=== PATIENT | male | born 1955 | race Caucasian/White ===

== ENCOUNTER 2016-12-11 15:00 | Inpatient (IN) | payer BC ==
[2016-12-11 15:23] VITALS: BMI 37.3
[2016-12-11] MEDS ORDERED: LIDOCAINE HCL 2% JELLY (5 ML/TUBE) ONE ×2 (15:33→17:46)
[2016-12-11] MEDS ORDERED: HYDROmorphone HCL CARPU-JECT 1 MG/1 ML DISP.SYRIN IVPB ONE ×3 (15:49→19:31)
[2016-12-11] MEDS ORDERED: LIDOCAINE HCL 2% JELLY (5 ML/TUBE) TP ONE ×3 (15:51→19:59)
--- NOTE | 2016-12-11 15:58 | PDOC ---
History of Present Illness - History of Present Illness Initial Comments: 12/11/16 16:46 The patient is a 61-year-old male with a significant past medical history of spinal stenosis, disc herniations, prostate cancer s/p prostatectomy (in remission), presents with intermittent hematuria and abdominal pain for one week. The patient reports he has experienced these symptoms in the past. He reports having a routine cystoscopy performed 2 months ago that was negative. He noticed that he was having increasing hematuria and states he was prescribed cephalexin. He reports he has been taking this medication as prescribed, but noticed today that he was unable to urinate for last 4-5 hours. He reports increasing abdominal distention and lower abdominal pain. Allergies: morphine and penicillins <Gisella Wells - Last Filed: 12/11/16 19:07> - General History Source: Patient Exam Limitations: No Limitations <Colt Moreland - Last Filed: 12/11/16 19:43> - General Chief Complaint: Urinary Problem Stated Complaint: UNABLE TO URINATE/HEMATURIA Time Seen by Provider: 12/11/16 15:28 Past History <Gisella Wells - Last Filed: 12/11/16 19:07> - Past Medical History HTN: Yes - Surgical History Neurologic Surgery: Yes (BACK SURGERIESX5) - Psycho/Social/Smoking Cessation Hx Suicidal Ideation: No Smoking History: Never smoked <Colt Moreland - Last Filed: 12/11/16 19:43> - Past Medical History Allergies/Adverse Reactions: Allergies Allergy/AdvReac Type Severity Reaction Status Date / Time morphine Allergy Difficulty Verified 12/11/16 15:20 Breathing Penicillins Allergy Swelling Verified 12/11/16 15:20 Home Medications: Ambulatory Orders Diazepam [Valium] 5 mg PO DAILY 12/11/16 Hydromorphone [Dilaudid -] 2 mg PO Q8H 12/11/16 Levofloxacin [Levaquin -] 500 mg PO DAILY 12/11/16 Review of Systems - Review of Systems Able to Perform ROS?: Yes Comments:: 12/11/16 16:50 GENERAL/CONSTITUTIONAL: No fever or chills. No weakness. HEAD, EYES, EARS, NOSE AND THROAT: No change in vision. No ear pain or discharge. No sore throat. CARDIOVASCULAR: No chest pain or shortness of breath. RESPIRATORY: No cough, wheezing, or hemoptysis. GASTROINTESTINAL: (+) lower abdominal pain. abdominal distention. No nausea, vomiting, diarrhea or constipation. GENITOURINARY: (+) hematuria and hesitancy. No dysuria MUSCULOSKELETAL: No joint or muscle swelling or pain. No neck or back pain. SKIN: No rash NEUROLOGIC: No headache, vertigo, loss of consciousness, or change in strength/ sensation. ENDOCRINE: No increased thirst. No abnormal weight change. HEMATOLOGIC/LYMPHATIC: No anemia, easy bleeding, or history of blood clots. ALLERGIC/IMMUNOLOGIC: No hives or skin allergy. <Gisella Wells - Last Filed: 12/11/16 19:07> *Physical Exam - Vital Signs Last Vital Signs Temp Pulse Resp BP Pulse Ox 97.9 F 116 H 19 140/72 96 12/11/16 15:19 12/11/16 15:19 12/11/16 15:19 12/11/16 15:19 12/11/16 15:19 - Physical Exam Comments: 12/11/16 16:51 GENERAL: Awake, alert, and fully oriented, in no acute distress HEAD: No signs of trauma EYES: PERRLA, EOMI, sclera anicteric, conjunctiva clear ENT: Auricles normal inspection, hearing grossly normal, nares patent, oropharynx clear without exudates. Moist mucosa NECK: Normal ROM, supple, no lymphadenopathy, JVD, or masses LUNGS: Breath sounds equal, clear to auscultation bilaterally. No wheezes, and no crackles HEART: Regular rate and rhythm, normal S1 and S2, no murmurs, rubs or gallops ABDOMEN: (+) Abdominal distension, lower abdominal discomfort on palpatio Soft, normoactive bowel sounds. No guarding, no rebound. No masses EXTREMITIES: Normal range of motion, no edema. No clubbing or cyanosis. No cords, erythema, or tenderness NEUROLOGICAL: Cranial nerves II-XII intact. Normal speech, normal gait. Sensation intact in upper and lower extremities. 5/5 motor strength in upper and lower extremities. No pronator drift. Finger to nose intact. Rapid alternations intact. SKIN: Warm, Dry, normal turgor, no rashes or lesions noted. <Gisella Wells - Last Filed: 12/11/16 19:07> - Vital Signs Last Vital Signs Temp Pulse Resp BP Pulse Ox 97.9 F 116 H 19 140/72 96 12/11/16 15:19 12/11/16 15:19 12/11/16 15:19 12/11/16 15:19 12/11/16 15:19 <Colt Moreland - Last Filed: 12/11/16 19:43> ED Treatment Course - LABORATORY CBC & Chemistry Diagram: 12/11/16 15:56 12/11/16 15:56 - ADDITIONAL ORDERS Additional order review: Laboratory Results 12/11/16 12/11/16 15:56 15:56 INR 1.05 PTT (Actin FS) 27.9 Urine Color Dk. red Urine Appearance Cloudy Urine pH 6.5 Urine Protein 3+ H Urine Glucose (UA) Trace H Urine Ketones 1+ H Urine Blood 3+ H Urine Nitrite Positive Urine Bilirubin Negative Urine Urobilinogen 2.0 e.u/dl Ur Leukocyte Esterase 2+ H 12/11/16 15:56 RBC 4.24 MCV 89.1 MCHC 32.2 RDW 16.2 H MPV 7.6 Neutrophils % 83.6 H Lymphocytes % 6.3 L Monocytes % 6.6 Eosinophils % 2.4 Basophils % 1.1 - RADIOLOGY Radiograph Interpretation: 12/11/16 19:08 EXAM: CT abdomen and pelvis noncontrast was read by Joni Graves MD at 19:04 EST FINDINGS: The kidneys are normal in size without hydronephrosis. There are no stones seen along the course of the ureters or within the bladder. Multiple nonobstructing stones in the left kidney measuring up to 8 mm and small 2 mm nonobstructing stone in the lower pole of the left kidney. There is mild bilateral perinephric stranding, possibly chronic changes. Fatty liver. Hypodense lesion at the posterior dome of the liver measuring 1.1 cm, likely a cyst The unenhanced upper abdominal visceral organs are otherwise unremarkable Normal appearance of the gallbladder There is no bowel distention The appendix is not visualized Few diverticula predominantly in the left colon without evidence of acute diverticulitis The urinary bladder is decompressed and contains a Fernandes catheter The prostate is absent L4 and L5 laminectomy defects <Gisella Wells - Last Filed: 12/11/16 19:07> - LABORATORY CBC & Chemistry Diagram: 12/11/16 15:56 12/11/16 15:56 - RADIOLOGY Radiology Studies Ordered: Category Date Time Status SPIRAL- RENAL-STONE CT [CT] Stat CT Scan 12/11/16 15:49 Ordered <Colt Moreland - Last Filed: 12/11/16 19:43> Medical Decision Making - Medical Decision Making 12/11/16 15:52 A portion of this note was documented by scribe services under my direction. I have reviewed the details of the note, within reason, and agree with the documentation with the following case summary and management plan written by me. Patient treated in the ED. Nursing notes are reviewed and incorporated into the medical decision-making. Vital signs reviewed. Peripheral IV access obtained by the nurse, laboratory studies are drawn and sent, reviewed and interpreted by myself. Vital Signs Temp Pulse Resp BP Pulse Ox 97.9 F 116 H 19 140/72 96 12/11/16 15:19 12/11/16 15:19 12/11/16 15:19 12/11/16 15:19 12/11/16 15:19 61-year-old male with past medical history of spinal stenosis, disc herniations , prostate cancer status post prostatectomy, in remission presents with intermittent hematuria for one week. Patient has had these problems before and is unclear what the etiology is. He reports having a routine cystoscopy performed 2 months ago that was negative. He noticed that he was having increasing hematuria which was prescribed cephalexin. He reports he has been taking this medication. Noted today that he was unable to urinate for last 4-5 hours and noted increasing abdominal distention and pain. Came into the ED for further evaluation. He reports that this has been a problem before. 40 catheter was inserted immediately and a partially thousand cc of bloody urine obtained. We'll obtain a spiral CT to rule out kidney stones or to rule out other abdominal or back pathology. Labs to rule out a postoperative renal failure. Pain control. Reassess. 12/11/16 19:09 CBC, BMP 12/11/16 15:56 12/11/16 15:56 CMP Sodium 138 mmol/L (136-145) 12/11/16 15:56 Potassium 4.3 mmol/L (3.5-5.1) 12/11/16 15:56 Chloride 100 mmol/L (98-107) 12/11/16 15:56 Carbon Dioxide 30 mmol/L (21-32) 12/11/16 15:56 Anion Gap 8 (8-16) 12/11/16 15:56 BUN 14 mg/dL (7-18) 12/11/16 15:56 Creatinine 1.0 mg/dL (0.7-1.3) 12/11/16 15:56 Creat Clearance w eGFR > 60 (>60) 12/11/16 15:56 Random Glucose 101 mg/dL (74-106) 12/11/16 15:56 Calcium 9.3 mg/dL (8.5-10.1) 12/11/16 15:56 Total Bilirubin 0.5 mg/dL (0.2-1.0) 12/11/16 15:56 AST 25 U/L (15-37) 12/11/16 15:56 ALT 35 U/L (12-78) 12/11/16 15:56 Alkaline Phosphatase 106 U/L (45-117) 12/11/16 15:56 Total Protein 6.7 g/dl (6.4-8.2) 12/11/16 15:56 Albumin 3.8 g/dl (3.4-5.0) 12/11/16 15:56 Urine Test Results Urine Color Dk. red 12/11/16 15:56 Urine Appearance Cloudy 12/11/16 15:56 Urine pH 6.5 (5.0-8.0) 12/11/16 15:56 Urine Protein 3+ (NEGATIVE) H 12/11/16 15:56 Urine Glucose (UA) Trace (NEGATIVE) H 12/11/16 15:56 Urine Ketones 1+ (NEGATIVE) H 12/11/16 15:56 Urine Blood 3+ (NEGATIVE) H 12/11/16 15:56 Urine Nitrite Positive (NEGATIVE) 12/11/16 15:56 Urine Bilirubin Negative (NEGATIVE) 12/11/16 15:56 Ur Leukocyte Esterase 2+ (NEGATIVE) H 12/11/16 15:56 Urine RBC >500 /hpf (0-3) 12/11/16 15:56 Urine WBC 20 /hpf (3-5) 12/11/16 15:56 Urine Bacteria Few /hpf (NONE SEEN) 12/11/16 15:56 CT scan shows: multiple nonobstructing stones. 12/11/16 19:09 The patient's is here in the ED now. States that the patient has been on cipro and then levaquin and the patient continues to have UTIs. Patient fails outpatient management. CBI ordered. Pt continues to have blood clots and hematuria from fernandes catheter. Given persistent pain, persistence hematuria, and failure for outpatient management on abx, Will need to admit the patient to the hospital. Pt follows up with DR. Addison and DR. Beth. 12/11/16 19:[address] Gutierrez who accepts the patient to med/surg admission. Case discussed in detail with admitting physician including history, physical exam and ancillary studies. Admitting physician has assumed care for the patient, will follow all pending diagnostics and will complete the evaluation and treatment. <Colt Moreland - Last Filed: 12/11/16 19:43> *DC/Admit/Observation/Transfer - Attestations Scribe Attestion: 12/11/16 16:51 Documentation prepared by Gisella Wells, acting as medical logistics specialist for Colt Moreland MD, <Gisella Wells - Last Filed: 12/11/16 19:07> - Discharge Dispostion Admit: Yes <Colt Moreland - Last Filed: 12/11/16 19:43> Diagnosis at time of Disposition: Hematuria Urinary tract infection Qualifiers: Urinary tract infection type: site unspecified Hematuria presence: with hematuria Qualified Code(s): N39.0 - Urinary tract infection, site not specified ; R31.9 - Hematuria, unspecified - Discharge Dispostion Condition at time of disposition: Stable
[2016-12-11 16:02] LABS: MEAN PLT VOLUME 7.6 fl (7.5-11.1); PLATELET COUNT 195 K/MM3 (134-434); URINE COLOR DK. RED; URINE GLUCOSE (UA) TRACE (NEGATIVE)
[2016-12-11 16:03] LABS: PH,URINE 6.5 (5.0-8.0); URINE BILIRUBIN NEGATIVE (NEGATIVE); URINE KETONE 1+ (NEGATIVE); URINE UROBILINOGEN 2.0 E.U/dl E.U./dl (0.2-1.0)
[2016-12-11 16:09] LABS: BASOPHIL 1.1 % (0-2.0); EOSINOPHIL 2.4 % (0-4.5); MCH 28.7 pg (25.7-33.7); MCHC 32.2 g/dl (32.0-35.9); MEAN CELL VOLUME 89.1 fl (80-96); NEUTROPHILS 83.6 % (42.8-82.8); RDW 16.2 % (11.9-15.9); URINE BLOOD 3+ (NEGATIVE); URINE LEUK ESTERASE 2+ (NEGATIVE); URINE NITRITE POSITIVE (NEGATIVE); URINE PROTEIN 3+ (NEGATIVE); WHITE BLOOD COUNT 7.9 K/mm3 (4.0-10.0)
[2016-12-11] MEDS ORDERED: HYDROmorphone HCL CARPU-JECT 1 MG/1 ML DISP.SYRIN ONE ×4 (16:09→21:28)
[2016-12-11 16:10] LABS: URINE APPEARANCE CLOUDY
[2016-12-11 16:20] LABS: INR 1.05 (0.82-1.09); PROTHROMBIN TIME (PATIENT) 11.6 SEC (9.98-11.88)
[2016-12-11 16:23] LABS: ACTIVATED PTT 27.9 SECONDS (26.9-34.4)
[2016-12-11 16:33] LABS: ALBUMIN 3.8 g/dl (3.4-5.0); ANION GAP 8 (8-16); BILIRUBIN,TOTAL 0.5 mg/dL (0.2-1.0); CALCIUM 9.3 mg/dL (8.5-10.1); CO2 30 mmol/L (21-32); COCKROFT - GAULT 126.12; GLUCOSE,RANDOM 101 mg/dL (74-106); SGOT/AST 25 U/L (15-37); SGPT/ALT 35 U/L (12-78); TOT PROT 6.7 g/dl (6.4-8.2)
[2016-12-11 16:34] LABS: ALK PHOS 106 U/L (45-117)
[2016-12-11] MEDS ORDERED: LEVOFLOXACIN 500 MG IVPB 100 ML IVPB ONE ×2 (16:34→17:46)
[2016-12-11 16:59] LABS: URINE RBC >500 /hpf (0-3)
[2016-12-11 17:01] LABS: URINE BACTERIA FEW /hpf (NONE SEEN); URINE WBC 20 /hpf (3-5)
[2016-12-11] MEDS ORDERED: HYDROmorphone HCL CARPU-JECT 1 MG/1 ML DISP.SYRIN IVPUSH ONE (21:09)
[2016-12-11] MEDS ORDERED: ONDANSETRON 4 MG/2 ML VIAL IVPB PRN (21:54)
[2016-12-11] MEDS: SODIUM CHLORIDE 1,000 ML IV SCH (23:38)
[2016-12-11] MEDS: ACETAMINOPHEN 325 MG TABLET (FP) PO PRN (23:44)
[2016-12-12] MEDS: HYDROmorphone HCL CARPU-JECT 2 MG/1 ML DISP.SYRIN IVPB PRN ×7 (03:16→23:57)
[2016-12-12 08:05] LABS: BASOPHIL 1.2 % (0-2.0); EOSINOPHIL 3.1 % (0-4.5); MCH 29.3 pg (25.7-33.7); MCHC 32.4 g/dl (32.0-35.9); MEAN CELL VOLUME 90.4 fl (80-96); NEUTROPHILS 76.4 % (42.8-82.8); PLATELET COUNT 173 K/MM3 (134-434); RDW 16.6 % (11.9-15.9); WHITE BLOOD COUNT 5.2 K/mm3 (4.0-10.0)
[2016-12-12 08:52] LABS: ALBUMIN 3.4 g/dl (3.4-5.0); ALK PHOS 102 U/L (45-117); ANION GAP 11 (8-16); BILIRUBIN,TOTAL 0.8 mg/dL (0.2-1.0); CALCIUM 8.7 mg/dL (8.5-10.1); CO2 29 mmol/L (21-32); COCKROFT - GAULT 126.12; GLUCOSE,RANDOM 115 mg/dL (74-106); SGOT/AST 19 U/L (15-37); SGPT/ALT 32 U/L (12-78); TOT PROT 6.1 g/dl (6.4-8.2)
[2016-12-12] MEDS: cefTRIAXone 1 GM/50 ML BAG (PRE-DOCKED) IVPB SCH (09:34)
[2016-12-12] MEDS: diazePAM 5 MG TABLET PO SCH (09:34)
[2016-12-12] MEDS: PANTOPRAZOLE 40 MG TABLET (FP) PO SCH (09:38)
[2016-12-12] MEDS ORDERED: CEFTRIAXONE 1 GM in DEXTROSE 5%-WATER - 50 ML IVPB SCH (10:00)
--- NOTE | 2016-12-12 12:21 | HP ---
Admitting History and Physical - Primary Care Physician PCP: Joni Ordoñez - Admission Chief Complaint: I was bleeding History of Present Illness: Mr Erwin is a very pleasant 61 year old male who comes in with blood in his urine and abdominal pain. He says he recently had a cystoscopy a few months ago and was told his bladder did not show any signs of cancer. However he was having hematuria off and on but it recently became more significant. It was bright red blood with clots. He has visited an outside ER multiple times and was placed on antibiotics. Yesterday he noted that he was having blood and then became unable to urinate at all. He also had pain in his abdomen secondary to this. Because of this he came in for further evaluation. He also has chronic back pain that he is scheduled for surgery. He denies fevers, chills, lightheadedness, dizziness, passing out, chest pain, shortness of breath, nausea , vomiting, diarrhea, or leg swelling. He says he is feeling better today. He is urinating freely and does not note any further blood. His back pain is severe and unchanged from baseline. History Source: Patient Limitations to Obtaining History: No Limitations - Past Medical History Cardiovascular: Yes: HTN - Past Surgical History Past Surgical History: Yes: Appendectomy Additional Past Surgical History: multiple back surgeries - Smoking History Smoking history: Never smoked Have you smoked in the past 12 months: No Aproximately how many cigarettes per day: 0 - Alcohol/Substance Use Hx Alcohol Use: No History of Substance Use: reports: None - Social History Usual Living Arrangement: Yes: With Spouse ADL: Independent History of Recent Travel: Yes (lives in [place], no international) Home Medications - Allergies Allergies/Adverse Reactions: Allergies Allergy/AdvReac Type Severity Reaction Status Date / Time morphine Allergy Mild Hives Verified 11/10/13 11:37 Penicillins Allergy Mild Swelling Verified 11/10/13 11:37 - Home Medications Home Medications: Ambulatory Orders Hydrocodone/Ibuprofen [Hydrocodone Bt-Ibuprofen Tab] 1 each PO Q4H PRN 11/10/13 Lisinopril [Prinivil] 20 mg PO DAILY 11/10/13 Oxycodone HCl/Acetaminophen [Percocet 5-325 mg Tablet -] 1 tab PO Q6H #14 tablet 11/10/13 Diazepam [Valium] 5 mg PO DAILY 12/11/16 Hydromorphone [Dilaudid -] 2 mg PO Q8H 12/11/16 Levofloxacin [Levaquin -] 500 mg PO DAILY 12/11/16 Family Disease History - Family Disease History Family History: Unremarkable Review of Systems Findings/Remarks: Full review of systems obtained, as per HPI and otherwise negative Physical Examination Vital Signs: Vital Signs Temperature 98.4 F 12/12/16 06:00 Pulse Rate 95 H 12/12/16 06:00 Respiratory Rate 20 12/12/16 06:00 Blood Pressure 117/43 12/12/16 06:00 O2 Sat by Pulse Oximetry (%) 98 12/11/16 23:10 Constitutional: Yes: No Distress, Calm, Obese Eyes: Yes: Conjunctiva Clear, EOM Intact, PERRL HENT: Yes: Atraumatic, Normocephalic Cardiovascular: Yes: Regular Rate and Rhythm. No: Gallop, Murmur, Rub Respiratory: Yes: Regular, CTA Bilaterally. No: Rales, Rhonchi, Wheezes Gastrointestinal: Yes: Normal Bowel Sounds, Soft. No: Distention, Tenderness Extremities: Yes: WNL Edema: No Labs: CBC, BMP 12/12/16 06:30 12/12/16 06:30 Imaging - Results Cat Scan: Other (unable to open in computer, awaiting official read) Problem List - Problems (1) UTI (urinary tract infection) Assessment/Plan: -urinalysis positive for UTI -started on rocephin -on oral antibiotics as an outpatient -continue IV rocephin today, await sensitivities as may have resistance since on antibiotics previously -will need a full course, complicated UTI -day 2 of antibiotics Qualifiers: Urinary tract infection type: acute cystitis Hematuria presence: with hematuria Qualified Code(s): N30.01 - Acute cystitis with hematuria (2) Hematuria Assessment/Plan: -resolved -secondary to UTI -urology consulted -await read on CT scan (3) Back pain Assessment/Plan: -continue dilaudid Code(s): M54.9 - DORSALGIA, UNSPECIFIED (4) HTN (hypertension) Assessment/Plan: -continue lisinopril Code(s): I10 - ESSENTIAL (PRIMARY) HYPERTENSION
[2016-12-12] MEDS: CITALOPRAM HYDROBROMIDE 20 MG TABLET (FP) PO SCH (17:47)
[2016-12-13] MEDS: HYDROmorphone HCL CARPU-JECT 2 MG/1 ML DISP.SYRIN IVPB PRN ×5 (04:23→21:02)
[2016-12-13] MEDS: SODIUM CHLORIDE 1,000 ML IV SCH ×2 (04:33→21:03)
[2016-12-13 07:54] LABS: BASOPHIL 1.3 % (0-2.0); EOSINOPHIL 1.3 % (0-4.5); MCH 29.4 pg (25.7-33.7); MCHC 32.4 g/dl (32.0-35.9); MEAN CELL VOLUME 90.5 fl (80-96); MEAN PLT VOLUME 7.9 fl (7.5-11.1); NEUTROPHILS 82.2 % (42.8-82.8); PLATELET COUNT 171 K/MM3 (134-434); RDW 16.8 % (11.9-15.9); WHITE BLOOD COUNT 6.1 K/mm3 (4.0-10.0)
[2016-12-13 08:19] LABS: CALCIUM 8.6 mg/dL (8.5-10.1); MAGNESIUM 2.2 mg/dL (1.8-2.4)
[2016-12-13 08:21] LABS: COCKROFT - GAULT 157.65; CREATININE 0.8 mg/dL (0.7-1.3); PHOSPHOROUS 2.4 mg/dL (2.5-4.9)
[2016-12-13] MEDS: cefTRIAXone 1 GM/50 ML BAG (PRE-DOCKED) IVPB SCH (09:39)
[2016-12-13] MEDS: CITALOPRAM HYDROBROMIDE 20 MG TABLET (FP) PO SCH (09:39)
[2016-12-13] MEDS: LISINOPRIL 20 MG TABLET (FP) PO SCH (09:39)
[2016-12-13] MEDS: PANTOPRAZOLE 40 MG TABLET (FP) PO SCH (09:39)
[2016-12-13] MEDS: diazePAM 5 MG TABLET PO SCH (09:39)
--- NOTE | 2016-12-13 15:05 | PN ---
Progress Note (short form) - Note Progress Note: [place] consult dictated imp/reccd 61 patrick old man with pmh of prostate cancer s/p prostatectomy and RT, eligard for 3 years, history of spinal stenosis and DJD s/p 5 back surgeries (last 13 months ago in [place]) (no hardware), developed gross hematuria 3 months ago- was evaluated by a urologist in [place]- had cystoscopy- spontaneously resolved. Now with recurrent hematuria which started several days ago while he was in [place]- he went to ED 6 times there for back pain and hematuria and was prescribed Ciprofloxacin. He was then called at the end of the week and told he had a ECOLI uti and was switched to cephelexin which he was started on he was then called and told to take levaquin whcih he took for the weekend. He came to ED b/c he had difficulty urinating and had severe lower abdominal and back pain. As well he didnot tolerate the levaquin which gave him stomach pain. In the ED they placed a fernandes and did bladder irrigation and then removed the fernandes. Since then he urinates small amounts of clear urine. No further hematuria. He is still having severe back pain. No fevers or chills Gross hematuria- in patient with history of radiation for prostate cancer ecoli uti- partially treated severe back pain- chronic from DJD and spinal stenosis-he reports as unchanged would get records from ER in [place] - need urine culture results culture here is negative b/c he was previously treated rocephin is fine for now f[facility]
--- NOTE | 2016-12-13 15:30 | PN ---
Progress Note, Physician Chief Complaint: Today complains of pain but is also very somnolent. Pain is located mainly in the back. No cp, sob, n/v. - Current Medication List Current Medications: Active Medications Acetaminophen (Tylenol -) 650 mg PO Q6H PRN PRN Reason: FEVER OR PAIN Last Admin: 12/11/16 23:44 Dose: 650 mg Ceftriaxone Sodium (Rocephin 1gm Ivpb (Pre-Docked)) 1 gm IVPB DAILY [facility] Last Admin: 12/13/16 09:39 Dose: 1 gm Citalopram Hydrobromide (Celexa -) 20 mg PO DAILY [facility] Last Admin: 12/13/16 09:39 Dose: 20 mg Diazepam (Valium -) 5 mg PO DAILY [facility] Last Admin: 12/13/16 09:39 Dose: 5 mg Hydromorphone HCl (Dilaudid Injection -) 2 mg IVPB Q4H PRN Last Admin: 12/13/16 13:13 Dose: 2 mg Sodium Chloride (Normal Saline -) 1,000 mls @ 75 mls/hr IV ASDIR [facility] Last Admin: 12/13/16 04:33 Dose: 75 mls/hr Lisinopril (Prinivil) 20 mg PO DAILY [facility] Last Admin: 12/13/16 09:39 Dose: 20 mg Ondansetron HCl (Zofran Injection) 4 mg IVPB Q6H PRN PRN Reason: NAUSEA Pantoprazole Sodium (Protonix -) 40 mg PO DAILY [facility] Last Admin: 12/13/16 09:39 Dose: 40 mg - Objective Vital Signs: Vital Signs Temperature 98.6 F 12/13/16 10:00 Pulse Rate 84 12/13/16 10:00 Respiratory Rate 20 12/13/16 11:00 Blood Pressure 139/88 12/13/16 10:00 O2 Sat by Pulse Oximetry (%) 98 12/13/16 11:00 Constitutional: Yes: Well Nourished, No Distress, Calm Cardiovascular: Yes: Regular Rate and Rhythm. No: Gallop, Murmur, Rub Respiratory: Yes: Regular, CTA Bilaterally. No: Rales, Rhonchi, Wheezes Gastrointestinal: Yes: Normal Bowel Sounds, Soft. No: Distention, Tenderness Extremities: Yes: WNL Edema: No Labs: CBC, BMP 12/13/16 06:20 12/13/16 06:20 INR, PTT INR 1.05 (0.82-1.09) 12/11/16 15:56 Problem List - Problems (1) UTI (urinary tract infection) Qualifiers: Urinary tract infection type: acute cystitis Hematuria presence: with hematuria Qualified Code(s): N30.01 - Acute cystitis with hematuria (3) Back pain Code(s): M54.9 - DORSALGIA, UNSPECIFIED (4) HTN (hypertension) Code(s): I10 - ESSENTIAL (PRIMARY) HYPERTENSION Assessment/Plan (1) UTI (urinary tract infection) Assessment/Plan: -urinalysis positive but cultures negative -? if cultures are false negative since treated -consult ID -continue rocephin currently Qualifiers: Urinary tract infection type: acute cystitis Hematuria presence: with hematuria Qualified Code(s): N30.01 - Acute cystitis with hematuria (2) Hematuria Assessment/Plan: -resolved -secondary to UTI -urology consulted and awaiting recommendations (3) Back pain Assessment/Plan: -patient with pain but somnolent -WILL NOT INCREASE NARCOTIC REGIMEN AT THIS TIME SECONDARY TO SOMNOLENCE AND CONCERN FOR RESPIRATORY DEPRESSION Code(s): M54.9 - DORSALGIA, UNSPECIFIED (4) HTN (hypertension) Assessment/Plan: -continue lisinopril Code(s): I10 - ESSENTIAL (PRIMARY) HYPERTENSION
--- NOTE | 2016-12-13 17:09 | CONS ---
DATE OF CONSULTATION: DATE OF DICTATION: 12/13/2016 REQUESTED BY: Silvio Millan MD This is a 61-year-old man with a past medical history of prostate cancer in 2012. He was status post prostatectomy, radiation therapy, and Eligard which he took for 3 years. He reports he was told he was cured. He has a history of spinal stenosis and DJD, has had 5 back surgeries, the last 13 months ago. There is no hardware in his back. This was in [place]. He has continued to have severe back pain and is currently consulting with a surgeon in [place]. Three months ago, he had an episode of gross hematuria. He is currently living and working in [place]. He saw a urologist there, who did a cystoscopy and told him everything was fine. The hematuria resolved. Again about a week ago he had gross hematuria. He then, during that time, he was making multiple visits to the emergency room for continued back pain. When he developed this gross hematuria, the emergency room sent a urine culture and they started him on Cipro. They called him last and told him the culture grew E coli and to start taking cephalexin. He took 1 tablet on . he caught a flight and came to [place] to have his back evaluation. evening he received another call from the ER in [place] and was told to switch to Levaquin, which he did. He ays the Levaquin was very very difficult on his stomach but he took it for the weekend. He developed urinary retention, he was unable to urinate and he came to the emergency room. There were no fevers or chills or lightheadedness. He did not pass out. He had no chest pain. He had abdominal pain due to the urinary retention. He reports his back pain is constant and severe and unchanged. In the emergency room, he says they placed a Harris catheter. They then irrigated his bladder until the blood clots cleared, and then they pulled the Harris catheter. His past medical history is notable for hypertension as well as prostate cancer. He does have a prior history of nephrolithiasis. Surgical history is notable for rotator cuff surgery. He has had an appendectomy. He has had 5 surgeries on his back, the most recent 13 months ago, and he is status post prostatectomy. He actually lives in [place], his spouse lives here in [place], and he travels back and forth. 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 He is allergic to PENICILLIN but tolerates cephalosporins, and allergic to MORPHINE. Medications at home include the hydrocodone, lisinopril, Percocet, Valium, and the levofloxacin. Family history is unremarkable. SOCIAL HISTORY: As stated before, he lives part of the time in [place] and travels back, with plans to retire here in [place]. He is originally from [place]. There is no history of cigarette or substance use. REVIEW OF SYSTEMS: He has no cough; he has no fevers or chills. He has chronic severe back pain, which he reports he has had for months. He is now voiding small amount of clear urine. PHYSICAL EXAMINATION: General: He is awake and alert. Vital Signs: Temperature is 98.4. He is otherwise afebrile. Blood pressure is 135/87. Pulse 66. Respiratory rate 20. Saturating 98% on room air. HEENT: Normocephalic. His eyes are anicteric. Neck: Supple. Lungs: Clear to auscultation. Heart: Regular rate and rhythm. Abdomen: Soft, nontender. Extremities: Without edema. His back pain, lower back, is severe pain to the smallest touch. His white count is 6.1, hemoglobin 11.2, platelets 171, INR is 1. BUN 16, creatinine 0.8. LFTs are normal. Urinalysis is 2+ leukocytes, greater than 500 red cells, with 20 white cells, and urine culture which was sent is negative. He had a CAT scan of the abdomen and pelvis done in the emergency room that is notable for bilateral renal nonobstructing stones with stranding of the perinephric fat, likely chronic. There is no hydronephrosis. There is evidence of multilevel degenerative disk disease in the lumbar spine with bilateral laminectomy at L4-L5 and prominent right paracentral posterior spur impinging the L2 and S1 nerve root. In summary, this is a 61-year-old man with gross hematuria, in a patient with a history of radiation for prostate cancer, Escherichia coli urinary tract infection that is partially treated, severe back pain chronic from degenerative joint disease and spinal stenosis. I would get his records from the ER in [place]. We need the urine culture results to see if we can come up with another agent besides Levaquin, which he says he cannot tolerate. Culture here is negative because he was previously treated. I would continue his Rocephin, follow up with Urology and get his records. I have asked the staff to assist us in doing this. Further recommendations to follow. AGNES RODRIGUEZ M.D. LAZARO/[id number]
[2016-12-14] MEDS: HYDROmorphone HCL CARPU-JECT 2 MG/1 ML DISP.SYRIN IVPB PRN ×6 (00:43→23:26)
[2016-12-14] MEDS: SODIUM CHLORIDE 1,000 ML IV SCH ×3 (07:51→23:27)
--- NOTE | 2016-12-14 07:57 | CON.GU ---
Consult - History of Present Illness History of Present Illness: 61 yo male with h/o prostate cancer s/p radical prostatectomy in 2012, followed by XRT, adjuvant hormone therapy for 3 yrs (ended 06/2016), currently NIALL. Recent gross heme evaluated by urologist [place] with normal cysto and heme resolved. GH recurred again about a week ago and given several different antibiotics, now admitted for same. No dysuria, no flank pain. Initially fioley placed in ER and placed on CBI but now fernandes is out, urine is clear and voiding spontaneously. Urine culture on admission is negative but pt also had been on multiple antibiotics. CT scan shows bilateral nonobstructing stones. Complicating things is his chronic low back pain/spinal stenosis which has required 6 surgeries in the past, with a planned 7th sugery upcoming. Right now his only complaint is back pain - Past Medical History Cardio/Vascular: Yes: HTN - Past Surgical History Past Surgical History: Yes: Appendectomy - Alcohol/Substance Use Hx Alcohol Use: No History of Substance Use: reports: None - Smoking History Smoking history: Never smoked Have you smoked in the past 12 months: No Aproximately how many cigarettes per day: 0 - Social History ADL: Independent History of Recent Travel: Yes (lives in [place], no international) Home Medications - Allergies Allergies/Adverse Reactions: Allergies Allergy/AdvReac Type Severity Reaction Status Date / Time morphine Allergy Mild Hives Verified 11/10/13 11:37 Penicillins Allergy Mild Swelling Verified 11/10/13 11:37 - Home Medications Home Medications: Ambulatory Orders Hydrocodone/Ibuprofen [Hydrocodone Bt-Ibuprofen Tab] 1 each PO Q4H PRN 11/10/13 Lisinopril [Prinivil] 20 mg PO DAILY 11/10/13 Oxycodone HCl/Acetaminophen [Percocet 5-325 mg Tablet -] 1 tab PO Q6H #14 tablet 11/10/13 Diazepam [Valium] 5 mg PO DAILY 12/11/16 Hydromorphone [Dilaudid -] 2 mg PO Q8H 12/11/16 Levofloxacin [Levaquin -] 500 mg PO DAILY 12/11/16 Review of Systems - Review of Systems Constitutional: reports: No Symptoms Neck: reports: No Symptoms Cardiovascular: reports: No Symptoms Gastrointestinal: reports: No Symptoms Genitourinary: reports: No Symptoms Musculoskeletal: reports: Back Pain Physical Exam- Vital Signs: Vital Signs Temperature 97.8 F 12/14/16 06:00 Pulse Rate 67 12/14/16 06:00 Respiratory Rate 20 12/14/16 06:00 Blood Pressure 119/67 12/14/16 06:00 O2 Sat by Pulse Oximetry (%) 98 12/13/16 21:00 Cardiovascular: Yes: Regular Rate and Rhythm Respiratory: Yes: Regular Gastrointestinal: Yes: Normal Bowel Sounds, Soft Renal/: Yes: WNL, Menses Present, , Vaginal Bleeding, Vaginal Discharge, Other. No: Anuria, Bladder Distention, CVA Tenderness - Left, CVA Tenderness - Right, Fernandes Present, Hematuria, Incontinence, Oliguria, Polyuria, Scrotal Edema, Urethral Discharge Testicles: Yes: WNL Scrotum: Yes: WNL Penis: Yes: WNL Labs: CBC, BMP 12/13/16 06:20 12/13/16 06:20 Imaging - Results Cat Scan: Image Reviewed Problem List - Problems (1) Hematuria Assessment/Plan: Etiology of gross heme likely from uti although prior XRT may be playing a role. Since the stones are nonobstructing, they are not the cause. Stable from standpoint. Abx as per ID.
[2016-12-14 08:16] LABS: BASOPHIL 0.7 % (0-2.0); EOSINOPHIL 3.7 % (0-4.5); MCH 29.2 pg (25.7-33.7); MCHC 32.5 g/dl (32.0-35.9); MEAN CELL VOLUME 89.8 fl (80-96); MEAN PLT VOLUME 7.3 fl (7.5-11.1); NEUTROPHILS 73.5 % (42.8-82.8); PLATELET COUNT 155 K/MM3 (134-434); RDW 16.3 % (11.9-15.9); WHITE BLOOD COUNT 5.1 K/mm3 (4.0-10.0)
[2016-12-14 09:14] LABS: CALCIUM 7.9 mg/dL (8.5-10.1); COCKROFT - GAULT 180.17; CREATININE 0.7 mg/dL (0.7-1.3); PHOSPHOROUS 2.1 mg/dL (2.5-4.9)
[2016-12-14] MEDS: LISINOPRIL 20 MG TABLET (FP) PO SCH (09:57)
[2016-12-14] MEDS: cefTRIAXone 1 GM/50 ML BAG (PRE-DOCKED) IVPB SCH (09:57)
[2016-12-14] MEDS: diazePAM 5 MG TABLET PO SCH (09:57)
[2016-12-14] MEDS: PANTOPRAZOLE 40 MG TABLET (FP) PO SCH (09:57)
[2016-12-14] MEDS: CITALOPRAM HYDROBROMIDE 20 MG TABLET (FP) PO SCH (09:57)
[2016-12-14] MEDS: NAPH,MB-DB/K PH,MBDB POWDER PACKET PO SCH ×2 (11:35→21:54)
[2016-12-14] MEDS: ACETAMINOPHEN 325 MG TABLET (FP) PO PRN ×2 (12:51→21:52)
--- NOTE | 2016-12-14 13:12 | PN ---
[id number] I called his hospital in [place]- [facility]- and got the records faxed- he had a urine culture with ecoli resistant to cipro and sensitive to bactrim and ceftriaxone Vital Signs Period Temp Pulse Resp BP Sys/Pineda Pulse Ox Last 24 Hr 8.4 F-98.5 F 66-67 18-20 119-155/67-87 98 cor-rrr lungs clear abd soft,nt ext no edema CBC, BMP 12/14/16 06:50 12/14/16 06:50 Microbiology 12/11/16 15:56 Urine - Urine - Catheterized Urine Culture - Final NO GROWTH OBTAINED a/p hematuria resolved day #3 ceftriaxone can switch to po bactrim when ready for discharge would treat total 14 days continued back pain- ?imaging consider neurosurgery/pain management d/w Dr Millan please call back if needed
--- NOTE | 2016-12-14 13:50 | PN ---
Progress Note, Physician Chief Complaint: Patient complains of back pain. No cp, sob, n/v. - Current Medication List Current Medications: Active Medications Acetaminophen (Tylenol -) 650 mg PO Q6H PRN PRN Reason: FEVER OR PAIN Last Admin: 12/14/16 12:51 Dose: 650 mg Ceftriaxone Sodium (Rocephin 1gm Ivpb (Pre-Docked)) 1 gm IVPB DAILY [facility] Last Admin: 12/14/16 09:57 Dose: 1 gm Citalopram Hydrobromide (Celexa -) 20 mg PO DAILY [facility] Last Admin: 12/14/16 09:57 Dose: 20 mg Diazepam (Valium -) 5 mg PO DAILY [facility] Last Admin: 12/14/16 09:57 Dose: 5 mg Hydromorphone HCl (Dilaudid Injection -) 2 mg IVPB Q4H PRN Last Admin: 12/14/16 09:57 Dose: 2 mg Sodium Chloride (Normal Saline -) 1,000 mls @ 75 mls/hr IV ASDIR [facility] Last Admin: 12/14/16 07:51 Dose: Not Given Lisinopril (Prinivil) 20 mg PO DAILY [facility] Last Admin: 12/14/16 09:57 Dose: 20 mg Ondansetron HCl (Zofran Injection) 4 mg IVPB Q6H PRN PRN Reason: NAUSEA Pantoprazole Sodium (Protonix -) 40 mg PO DAILY [facility] Last Admin: 12/14/16 09:57 Dose: 40 mg Potassium Phos/Sodium Phos (Phos-Nak Packet -) 1 packet PO BID [facility] Last Admin: 12/14/16 11:35 Dose: 1 packet - Objective Vital Signs: Vital Signs Temperature 97.5 F L 12/14/16 10:00 Pulse Rate 66 12/14/16 10:00 Respiratory Rate 18 12/14/16 10:00 Blood Pressure 139/81 12/14/16 10:00 O2 Sat by Pulse Oximetry (%) 98 12/13/16 21:00 Constitutional: Yes: Mild Distress, Obese Cardiovascular: Yes: Regular Rate and Rhythm. No: Gallop, Murmur, Rub Respiratory: Yes: Regular, CTA Bilaterally. No: Rales, Rhonchi, Wheezes Gastrointestinal: Yes: Normal Bowel Sounds, Soft. No: Distention, Tenderness Extremities: Yes: WNL Edema: No Labs: CBC, BMP 12/14/16 06:50 12/14/16 06:50 INR, PTT INR 1.05 (0.82-1.09) 12/11/16 15:56 Problem List - Problems (1) UTI (urinary tract infection) Qualifiers: Urinary tract infection type: acute cystitis Hematuria presence: with hematuria Qualified Code(s): N30.01 - Acute cystitis with hematuria (3) Back pain Code(s): M54.9 - DORSALGIA, UNSPECIFIED (4) HTN (hypertension) Code(s): I10 - ESSENTIAL (PRIMARY) HYPERTENSION Assessment/Plan (1) UTI (urinary tract infection) Assessment/Plan: -case d/w ID -change to bactrim on discharge -14 day total course of antibiotics Qualifiers: Urinary tract infection type: acute cystitis Hematuria presence: with hematuria Qualified Code(s): N30.01 - Acute cystitis with hematuria (2) Hematuria Assessment/Plan: -appreciate urology assistance -stable at this time (3) Back pain Assessment/Plan: -will obtain CT scan lumbar spine -pain management consult Code(s): M54.9 - DORSALGIA, UNSPECIFIED (4) HTN (hypertension) Assessment/Plan: -continue lisinopril Code(s): I10 - ESSENTIAL (PRIMARY) HYPERTENSION
[2016-12-15] MEDS: HYDROmorphone HCL CARPU-JECT 2 MG/1 ML DISP.SYRIN IVPB PRN ×5 (03:31→20:26)
[2016-12-15] MEDS: ACETAMINOPHEN 325 MG TABLET (FP) PO PRN ×3 (06:21→19:42)
[2016-12-15] MEDS: SODIUM CHLORIDE 1,000 ML IV SCH (06:24)
[2016-12-15 08:50] LABS: BASOPHIL 0.8 % (0-2.0); EOSINOPHIL 3.8 % (0-4.5); MCH 29.2 pg (25.7-33.7); MCHC 32.5 g/dl (32.0-35.9); MEAN CELL VOLUME 89.6 fl (80-96); MEAN PLT VOLUME 7.6 fl (7.5-11.1); NEUTROPHILS 76.4 % (42.8-82.8); PLATELET COUNT 188 K/MM3 (134-434); RDW 16.2 % (11.9-15.9); WHITE BLOOD COUNT 5.7 K/mm3 (4.0-10.0)
[2016-12-15 08:56] LABS: CALCIUM 8.3 mg/dL (8.5-10.1); COCKROFT - GAULT 180.17; CREATININE 0.7 mg/dL (0.7-1.3); MAGNESIUM 2.1 mg/dL (1.8-2.4); PHOSPHOROUS 2.3 mg/dL (2.5-4.9)
[2016-12-15] MEDS: NAPH,MB-DB/K PH,MBDB POWDER PACKET PO SCH ×2 (10:32→21:07)
[2016-12-15] MEDS: PANTOPRAZOLE 40 MG TABLET (FP) PO SCH (10:32)
[2016-12-15] MEDS: CITALOPRAM HYDROBROMIDE 20 MG TABLET (FP) PO SCH (10:32)
[2016-12-15] MEDS: cefTRIAXone 1 GM/50 ML BAG (PRE-DOCKED) IVPB SCH (10:32)
[2016-12-15] MEDS: diazePAM 5 MG TABLET PO SCH (10:32)
[2016-12-15] MEDS: LISINOPRIL 20 MG TABLET (FP) PO SCH (10:32)
[2016-12-15] MEDS ORDERED: POTASSIUM CHLORIDE TABS 20 MEQ TABLET.ER (FP) PO ONE (15:56)
--- NOTE | 2016-12-15 16:06 | PN ---
Progress Note, Physician Chief Complaint: Patient complains of back pain. No cp, sob, n/v. Now unable to get out of bed secondary to pain. - Current Medication List Current Medications: Active Medications Acetaminophen (Tylenol -) 650 mg PO Q6H PRN PRN Reason: FEVER OR PAIN Last Admin: 12/15/16 11:21 Dose: 650 mg Ceftriaxone Sodium (Rocephin 1gm Ivpb (Pre-Docked)) 1 gm IVPB DAILY [facility] Last Admin: 12/15/16 10:32 Dose: 1 gm Citalopram Hydrobromide (Celexa -) 20 mg PO DAILY [facility] Last Admin: 12/15/16 10:32 Dose: 20 mg Diazepam (Valium -) 5 mg PO DAILY [facility] Last Admin: 12/15/16 10:32 Dose: 5 mg Enoxaparin Sodium (Lovenox -) 40 mg SQ DAILY [facility] Hydromorphone HCl (Dilaudid Injection -) 2 mg IVPB Q4H PRN Last Admin: 12/15/16 11:50 Dose: 2 mg Sodium Chloride (Normal Saline -) 1,000 mls @ 75 mls/hr IV ASDIR [facility] Last Admin: 12/15/16 06:24 Dose: 75 mls/hr Lisinopril (Prinivil) 20 mg PO DAILY [facility] Last Admin: 12/15/16 10:32 Dose: 20 mg Ondansetron HCl (Zofran Injection) 4 mg IVPB Q6H PRN PRN Reason: NAUSEA Pantoprazole Sodium (Protonix -) 40 mg PO DAILY [facility] Last Admin: 12/15/16 10:32 Dose: 40 mg Potassium Phos/Sodium Phos (Phos-Nak Packet -) 1 packet PO BID [facility] Last Admin: 12/15/16 10:32 Dose: 1 packet - Objective Vital Signs: Vital Signs Temperature 98.0 F 12/15/16 14:53 Pulse Rate 76 12/15/16 14:53 Respiratory Rate 16 12/15/16 14:53 Blood Pressure 149/78 12/15/16 14:53 O2 Sat by Pulse Oximetry (%) 95 12/15/16 09:00 Constitutional: Yes: Moderate Distress, Obese Cardiovascular: Yes: Regular Rate and Rhythm. No: Gallop, Murmur, Rub Respiratory: Yes: Regular, CTA Bilaterally. No: Rales, Rhonchi, Wheezes Gastrointestinal: Yes: Normal Bowel Sounds, Soft. No: Distention, Tenderness Extremities: Yes: WNL Edema: No Labs: CBC, BMP 12/15/16 06:30 12/15/16 06:30 INR, PTT INR 1.05 (0.82-1.09) 12/11/16 15:56 Problem List - Problems (1) UTI (urinary tract infection) Qualifiers: Urinary tract infection type: acute cystitis Hematuria presence: with hematuria Qualified Code(s): N30.01 - Acute cystitis with hematuria (3) Back pain Code(s): M54.9 - DORSALGIA, UNSPECIFIED (4) HTN (hypertension) Code(s): I10 - ESSENTIAL (PRIMARY) HYPERTENSION Assessment/Plan (1) UTI (urinary tract infection) Assessment/Plan: -case d/w ID -change to bactrim on discharge -14 day total course of antibiotics Qualifiers: Urinary tract infection type: acute cystitis Hematuria presence: with hematuria Qualified Code(s): N30.01 - Acute cystitis with hematuria (2) Hematuria Assessment/Plan: -appreciate urology assistance -stable at this time (3) Back pain Assessment/Plan: -CT scan reviewed -pain management consult -patient unable to get out of bed or walk -discussed possible discharge to SNF for intensive PT, patient would benefit from this -however refuses SNF at this time -will call [facility] for further options Code(s): M54.9 - DORSALGIA, UNSPECIFIED (4) HTN (hypertension) Assessment/Plan: -continue lisinopril Code(s): I10 - ESSENTIAL (PRIMARY) HYPERTENSION
[2016-12-15] MEDS: ENOXAPARIN NA (PORCINE) 40 MG/0.4 ML DISP.SYRIN SQ SCH (16:10)
--- NOTE | 2016-12-15 22:45 | CONSULT ---
Consult Consult Specialty:: pain medicine Referred by:: dr doherty Reason for Consultation:: back pain - History of Present Illness Chief Complaint: back pain History of Present Illness: 61 year old man with multiple spinal surgeries who recently saw Dr Gallardo and scheduled the patient for spinal fusion. Due to extreme pain patient was admitted to [facility]. CUrrently he reports no pain relief with current medications. His pain score is 9/10 - Past Medical History Cardio/Vascular: Yes: HTN - Past Surgical History Past Surgical History: Yes: Appendectomy - Alcohol/Substance Use Hx Alcohol Use: No History of Substance Use: reports: None - Smoking History Smoking history: Never smoked Have you smoked in the past 12 months: No Aproximately how many cigarettes per day: 0 - Social History ADL: Independent History of Recent Travel: Yes (lives in [place], no international) Home Medications - Allergies Allergies/Adverse Reactions: Allergies Allergy/AdvReac Type Severity Reaction Status Date / Time morphine Allergy Mild Hives Verified 11/10/13 11:37 Penicillins Allergy Mild Swelling Verified 11/10/13 11:37 - Home Medications Home Medications: Ambulatory Orders Hydrocodone/Ibuprofen [Hydrocodone Bt-Ibuprofen Tab] 1 each PO Q4H PRN 11/10/13 Lisinopril [Prinivil] 20 mg PO DAILY 11/10/13 Oxycodone HCl/Acetaminophen [Percocet 5-325 mg Tablet -] 1 tab PO Q6H #14 tablet 11/10/13 Diazepam [Valium] 5 mg PO DAILY 12/11/16 Hydromorphone [Dilaudid -] 2 mg PO Q8H 12/11/16 Levofloxacin [Levaquin -] 500 mg PO DAILY 12/11/16 Physical Exam Vital Signs: Vital Signs Temperature 98.4 F 12/15/16 17:06 Pulse Rate 76 12/15/16 17:06 Respiratory Rate 20 12/15/16 17:06 Blood Pressure 161/86 12/15/16 17:06 O2 Sat by Pulse Oximetry (%) 95 12/15/16 09:00 Musculoskeletal: Yes: Back Pain Labs: CBC, BMP 12/15/16 06:30 12/15/16 06:30 Assessment/Plan Lumbar radiculopathy secondary to discogenic pain and herniation 1. Dilaudid [employer]- 0.4mg q10min prn pain. TO be maintained until patient transfer or discharge. 2. Patient to be transferred to [place] for spinal surgery with Dr Gallardo 3. Please recall PRN
[2016-12-16] MEDS: HYDROmorphone HCL CARPU-JECT 2 MG/1 ML DISP.SYRIN IVPB PRN (00:21)
[2016-12-16] MEDS: SODIUM CHLORIDE 1,000 ML IV SCH ×4 (00:22→22:40)
[2016-12-16] MEDS: HYDROmorphone *PCA* 10MG/50ML DISP.SYRIN PCA SCH (02:11)
[2016-12-16 07:34] LABS: EOSINOPHIL 3.9 % (0-4.5); MCH 29.9 pg (25.7-33.7); MCHC 33.3 g/dl (32.0-35.9); MEAN CELL VOLUME 89.8 fl (80-96); MEAN PLT VOLUME 7.3 fl (7.5-11.1); NEUTROPHILS 76.5 % (42.8-82.8); PLATELET COUNT 176 K/MM3 (134-434); WHITE BLOOD COUNT 5.6 K/mm3 (4.0-10.0)
[2016-12-16 08:02] LABS: CALCIUM 8.5 mg/dL (8.5-10.1)
[2016-12-16 08:06] LABS: COCKROFT - GAULT 180.17; CREATININE 0.7 mg/dL (0.7-1.3); MAGNESIUM 2.1 mg/dL (1.8-2.4); PHOSPHOROUS 2.9 mg/dL (2.5-4.9)
--- NOTE | 2016-12-16 09:43 | CONSULT ---
Consult Consult Specialty:: PM&R Reason for Consultation:: BLE stiffness - History of Present Illness Chief Complaint: B LBP down BLE History of Present Illness: This is a 61 year old man with a medical history of HTN, s/p appendectomy, prostate cancer s/p prostatectomy/ XRT/ Eligard, lumbar surgeries x5 2/2 HNP , who presented to the ED 12/11/16 with abdominal pain and hematuria. UA was positive, and he was started on Rocephin; UCx was negative although had recently grown E coli. His main complaint is LBP into BLE. 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 Patient reports he is to be transferred to [facility] tomorrow 12/17/16 for spinal fusion. He has done PT in past (including modalities) which have not helped. Physiatry is being consulted for further recommendations. - History Source History Provided By: Patient, Medical Record - Past Medical History Cardio/Vascular: Yes: HTN Renal/: Yes: Cancer (prostate cancer 2012 s/p prostatectomy/ XRT/ Eligard) - Past Surgical History Past Surgical History: Yes: Appendectomy - Alcohol/Substance Use Hx Alcohol Use: No History of Substance Use: reports: None - Smoking History Smoking history: Never smoked Have you smoked in the past 12 months: No Aproximately how many cigarettes per day: 0 - Social History Usual Living Arrangement: With Spouse (splits time between [place] and [place], in [place] lives with and daughter in apartment with 5-6 steps to enter, ambulated with [place]) ADL: Independent History of Recent Travel: Yes (lives in [place], no international) Home Medications - Allergies Allergies/Adverse Reactions: Allergies Allergy/AdvReac Type Severity Reaction Status Date / Time morphine Allergy Mild Hives Verified 11/10/13 11:37 Penicillins Allergy Mild Swelling Verified 11/10/13 11:37 - Home Medications Home Medications: Ambulatory Orders Hydrocodone/Ibuprofen [Hydrocodone Bt-Ibuprofen Tab] 1 each PO Q4H PRN 11/10/13 Lisinopril [Prinivil] 20 mg PO DAILY 11/10/13 Oxycodone HCl/Acetaminophen [Percocet 5-325 mg Tablet -] 1 tab PO Q6H #14 tablet 11/10/13 Diazepam [Valium] 5 mg PO DAILY 12/11/16 Hydromorphone [Dilaudid -] 2 mg PO Q8H 12/11/16 Levofloxacin [Levaquin -] 500 mg PO DAILY 12/11/16 Review of Systems Findings/Remarks: denies fevers, chills, changes in vision/ hearing/ mood, CP, SOB, abdominal pain , nausea, vomiting, constipation, diarrhea, dysuria. Hematuria resolved. Notes bowel and bladder urgency without incontinence. Ongoing LBP into BLE diffusely, with BLE paresthesias. Fatigue due to pain medications. Physical Exam Vital Signs: Vital Signs Temperature 97.9 F 12/16/16 06:00 Pulse Rate 71 12/16/16 06:11 Respiratory Rate 18 12/16/16 06:11 Blood Pressure 146/78 12/16/16 06:11 O2 Sat by Pulse Oximetry (%) 95 12/15/16 21:00 Musculoskeletal: Yes: Other (General: calm M lying in bed NAD but falling asleep, AAO x2 (not sure of time) HEENT: NCAT EOMI OP clear N/M: CN II- XII grossly Intact; B shoulder flexion to 75 degrees (limited by back pain), 5-/ 5 BUE; 4+/5 B DF/ EHL, declines B HF/ KE due to pain, B HF to 25 degrees passively then limited by pain, B KF to 45 degrees due to pain; Pinprick decreased diffusely BUE/ BLE, diffusely hyporeflexic BUE/ BLE, negative B Alcantar's sign Extremities: no BLE pitting edema, no B calf tenderness) Labs: CBC, BMP 12/16/16 06:30 12/16/16 06:30 Imaging - Results Cat Scan: Report Reviewed (CT lumbar spine and CT A/P reviewed) Assessment/Plan Impression: 1) Deficits mobility/ ADLs 2) Gait abnormality 3) Severe lumbar pain due to spinal stenosis, DDD, facet arthropathy, s/p L4 and L5 laminectomy s/p 5 lumbar surgeries, pending 6th 4) E coli UTI 5) Hematuria, resolved 6) Anemia 7) hx HTN 8) s/p appendectomy 9) hx prostate cancer '13 s/p prostatectomy/ XRT/ Eligard 10) Obesity Recommendations: 1) We discussed his doing PT while here to maintain BLE strength/ ROM; pt declines PT, saying it hasn't help in past and he only wants surgery. We discussed that the stronger he is prior to surgery, the easier the recovery- he continues to decline PT. We discussed HEP for BLE which he agrees to try. 2) Falls, safety precautions 3) Cardiac precautions 4) Continue pain medications per Pain Management 5) DVT ppx: on Lovenox 6) Denies constipation on current bowel regimen but monitor closely due to increased narcotic use 7) Skin protection: encourage frequent turning, float heels 8) Monitor CBC given anemia 9) Nutrition consult for obesity 10) Discharge planning: it is unlikely that he will be able to return home in current state. Would agree that transfer for lumbar fusion would be best option , although he may need to go to [facility]. If he insists on returning home, will need home services and adequate oral pain management. Thank you for this referral.
[2016-12-16] MEDS: cefTRIAXone 1 GM/50 ML BAG (PRE-DOCKED) IVPB SCH (10:44)
[2016-12-16] MEDS: ENOXAPARIN NA (PORCINE) 40 MG/0.4 ML DISP.SYRIN SQ SCH (10:44)
[2016-12-16] MEDS: LISINOPRIL 20 MG TABLET (FP) PO SCH (10:45)
[2016-12-16] MEDS: CITALOPRAM HYDROBROMIDE 20 MG TABLET (FP) PO SCH (10:45)
[2016-12-16] MEDS: diazePAM 5 MG TABLET PO SCH (10:45)
[2016-12-16] MEDS: NAPH,MB-DB/K PH,MBDB POWDER PACKET PO SCH ×2 (10:45→22:42)
[2016-12-16] MEDS: PANTOPRAZOLE 40 MG TABLET (FP) PO SCH (10:45)
--- NOTE | 2016-12-16 12:10 | PN ---
Progress Note, Physician Chief Complaint: Patient complains of back pain but better controlled on dilaudid packer dried beef. No cp, sob , n/v. - Current Medication List Current Medications: Active Medications Acetaminophen (Tylenol -) 650 mg PO Q6H PRN PRN Reason: FEVER OR PAIN Last Admin: 12/15/16 19:42 Dose: 650 mg Ceftriaxone Sodium (Rocephin 1gm Ivpb (Pre-Docked)) 1 gm IVPB DAILY [facility] Last Admin: 12/16/16 10:44 Dose: 1 gm Citalopram Hydrobromide (Celexa -) 20 mg PO DAILY [facility] Last Admin: 12/16/16 10:45 Dose: 20 mg Diazepam (Valium -) 5 mg PO DAILY [facility] Last Admin: 12/16/16 10:45 Dose: 5 mg Enoxaparin Sodium (Lovenox -) 40 mg SQ DAILY [facility] Last Admin: 12/16/16 10:44 Dose: 40 mg Hydromorphone HCl (Dilaudid Injection -) 2 mg IVPB Q4H PRN Last Admin: 12/16/16 00:21 Dose: 2 mg Hydromorphone HCl (Dilaudid B2B Sales Representative -) 10 mg HOME EXTENSION AGENT HOME EXTENSION AGENT [facility] PRN Reason: Protocol Stop: 12/22/16 22:39 Last Admin: 12/16/16 02:11 Dose: 10 mg Sodium Chloride (Normal Saline -) 1,000 mls @ 75 mls/hr IV ASDIR [facility] Last Admin: 12/16/16 02:19 Dose: 75 mls/hr Lisinopril (Prinivil) 20 mg PO DAILY [facility] Last Admin: 12/16/16 10:45 Dose: 20 mg Ondansetron HCl (Zofran Injection) 4 mg IVPB Q6H PRN PRN Reason: NAUSEA Pantoprazole Sodium (Protonix -) 40 mg PO DAILY [facility] Last Admin: 12/16/16 10:45 Dose: 40 mg Potassium Phos/Sodium Phos (Phos-Nak Packet -) 1 packet PO BID [facility] Last Admin: 12/16/16 10:45 Dose: 1 packet - Objective Vital Signs: Vital Signs Temperature 97.9 F 12/16/16 06:00 Pulse Rate 71 12/16/16 06:11 Respiratory Rate 18 12/16/16 06:11 Blood Pressure 146/78 12/16/16 06:11 O2 Sat by Pulse Oximetry (%) 95 12/16/16 09:00 Constitutional: Yes: No Distress, Calm, Obese Cardiovascular: Yes: Regular Rate and Rhythm. No: Gallop, Murmur, Rub Respiratory: Yes: Regular, CTA Bilaterally. No: Rales, Rhonchi, Wheezes Gastrointestinal: Yes: Normal Bowel Sounds, Soft. No: Distention, Tenderness Extremities: Yes: WNL Edema: No Labs: CBC, BMP 12/16/16 06:30 12/16/16 06:30 INR, PTT INR 1.05 (0.82-1.09) 12/11/16 15:56 Problem List - Problems (1) UTI (urinary tract infection) Qualifiers: Urinary tract infection type: acute cystitis Hematuria presence: with hematuria Qualified Code(s): N30.01 - Acute cystitis with hematuria (3) Back pain Code(s): M54.9 - DORSALGIA, UNSPECIFIED (4) HTN (hypertension) Code(s): I10 - ESSENTIAL (PRIMARY) HYPERTENSION Assessment/Plan (1) UTI (urinary tract infection) Assessment/Plan: -14 day total course of antibiotics -rocephin day 6 Qualifiers: Urinary tract infection type: acute cystitis Hematuria presence: with hematuria Qualified Code(s): N30.01 - Acute cystitis with hematuria (2) Hematuria Assessment/Plan: -appreciate urology assistance -stable at this time (3) Back pain Assessment/Plan: -appreciate pain management and physical medicine assistance -plan for transfer tomorrow to [place] for surgical repair Code(s): M54.9 - DORSALGIA, UNSPECIFIED (4) HTN (hypertension) Assessment/Plan: -continue lisinopril Code(s): I10 - ESSENTIAL (PRIMARY) HYPERTENSION
[2016-12-17] MEDS: HYDROmorphone *PCA* 10MG/50ML DISP.SYRIN PCA SCH ×2 (03:50→12:42)
[2016-12-17 08:24] LABS: BASOPHIL 1.1 % (0-2.0); EOSINOPHIL 3.1 % (0-4.5); MCH 29.8 pg (25.7-33.7); MCHC 33.6 g/dl (32.0-35.9); MEAN CELL VOLUME 88.7 fl (80-96); MEAN PLT VOLUME 7.3 fl (7.5-11.1); NEUTROPHILS 78.7 % (42.8-82.8); PLATELET COUNT 205 K/MM3 (134-434); RDW 15.9 % (11.9-15.9); WHITE BLOOD COUNT 6.9 K/mm3 (4.0-10.0)
[2016-12-17 08:49] LABS: CALCIUM 8.7 mg/dL (8.5-10.1); MAGNESIUM 2.1 mg/dL (1.8-2.4)
[2016-12-17 08:52] LABS: COCKROFT - GAULT 210.2; CREATININE 0.6 mg/dL (0.7-1.3); PHOSPHOROUS 2.7 mg/dL (2.5-4.9)
--- NOTE | 2016-12-17 09:33 | DS ---
Physical Examination Vital Signs: Vital Signs Temperature 98 F 12/17/16 06:00 Pulse Rate 77 12/17/16 06:00 Respiratory Rate 20 12/17/16 06:00 Blood Pressure 155/93 12/17/16 06:00 O2 Sat by Pulse Oximetry (%) 95 12/16/16 21:00 Constitutional: Yes: Well Nourished, No Distress, Calm Eyes: Yes: Conjunctiva Clear, EOM Intact HENT: Yes: Atraumatic, Normocephalic Cardiovascular: Yes: Regular Rate and Rhythm, S1, S2. No: Murmur Respiratory: Yes: Regular, CTA Bilaterally. No: Rales, Rhonchi, Wheezes Gastrointestinal: Yes: Normal Bowel Sounds, Soft, Abdomen, Obese. No: Distention, Tenderness Edema: No Neurological: Yes: Lethargy (but easily arousable) Labs: CBC, BMP 12/17/16 07:30 12/17/16 07:30 Discharge Summary Reason For Visit: HEMATURIA/UTI Current Active Problems Back pain (Acute) HTN (hypertension) (Acute) Hematuria (Acute) UTI (urinary tract infection) (Acute) Hospital Course: 61 yo male admitted with urinary retention/ hematuria. Found to have UTI, treated with IV Rocephin with resolution of hematuria and improvement of infection. Seen by Infectious Disease, and due to the complicated nature of the infection (with hematuria) advised 14 day total treatment (started abx on ). Patient does have a history of Prostate cancer, treated with prostatectomy, XRT and hormone therapy (completed in 2016) which also contributed to susceptibility to the UTI. He has been continued on IV Rocephin in hospital and was to be switched to PO Bactrim to complete his course, however , has been bed-bound, unable to walk due to back pain. The pain is chronic, with known spinal stenosis and severe degenerative disc disease, for which he has received several previous spine surgeries and was originally supposed to undergo another spinal surgery on 12/16/16. As he cannot walk and be discharged home, he is to be transferred to [facility], where he is to receive the surgery he was previously scheduled for. Currently, back pain is controlled on dilaudid L TACKER (evaluated by pain management here). Condition: Guarded - Instructions Diet, Activity, Other Instructions: Regular diet Referrals: Joni Ordoñez MD [Primary Care Provider] - Disposition: TRANSFER ACUTE CARE/OTHER HOSP - Home Medications Comprehensive Discharge Medication List: Ambulatory Orders Hydrocodone/Ibuprofen [Hydrocodone Bt-Ibuprofen Tab] 1 each PO Q4H PRN 11/10/13 Lisinopril [Prinivil] 20 mg PO DAILY 11/10/13 Oxycodone HCl/Acetaminophen [Percocet 5-325 mg Tablet -] 1 tab PO Q6H #14 tablet 11/10/13 Diazepam [Valium] 5 mg PO DAILY 12/11/16 Hydromorphone [Dilaudid -] 2 mg PO Q8H 12/11/16 Levofloxacin [Levaquin -] 500 mg PO DAILY 12/11/16
[2016-12-17] MEDS: NAPH,MB-DB/K PH,MBDB POWDER PACKET PO SCH (09:51)
[2016-12-17] MEDS: cefTRIAXone 1 GM/50 ML BAG (PRE-DOCKED) IVPB SCH (09:51)
[2016-12-17] MEDS: CITALOPRAM HYDROBROMIDE 20 MG TABLET (FP) PO SCH (09:51)
[2016-12-17] MEDS: LISINOPRIL 20 MG TABLET (FP) PO SCH (09:51)
[2016-12-17] MEDS: ENOXAPARIN NA (PORCINE) 40 MG/0.4 ML DISP.SYRIN SQ SCH (09:51)
[2016-12-17] MEDS: diazePAM 5 MG TABLET PO SCH (09:51)
[2016-12-17] MEDS: PANTOPRAZOLE 40 MG TABLET (FP) PO SCH (09:51)
[2016-12-17 14:58] VITALS: BP 146/89; PULSE 90; TEMP 98
[2016-12-17] MEDS ORDERED: HYDROmorphone HCL CARPU-JECT 2 MG/1 ML DISP.SYRIN IVPB ONE (16:10)
== END 2016-12-17 17:17 | disposition short-term general hospital (02) | DRG 690 ==
LOC: JER 15:00 → MERGE 19:43 → JERBED 19:43 → UNDOADMIN 20:00 → JERBED 20:00 → J8W 22:27
PROVIDERS: ADMIT Internal Medicine Geriatric Medicine; ATTEND Internal Medicine Geriatric Medicine
DX: N39.0 Urinary tract infection, site not specified (principal); I10 Essential (primary) hypertension; M54.9 Dorsalgia, unspecified; R26.9 Unspecified abnormalities of gait and mobility; B96.20 Unspecified Escherichia coli [E. coli] as the cause of diseases classified elsewhere; D64.9 Anemia, unspecified; E66.9 Obesity, unspecified; Z68.37 Body mass index [BMI] 37.0-37.9, adult; R31.0 Gross hematuria
CPT/HCPCS: 36415; 72131-TC; 74176; 80048; 80053; 81003; 81015; 83735; 84100; 85025; 85610; 85730; 87086; 97161-GP; 99284-25

== ENCOUNTER 2023-07-23 09:36 | Inpatient (IN) | payer BC, OTHER ==
[2023-07-23] MEDS ORDERED: ACETAMINOPHEN 325 MG TABLET (FP) PO ONE (10:23)
[2023-07-23] MEDS ORDERED: ACETAMINOPHEN 325 MG TABLET (FP) ONE ×2 (11:00→12:11)
[2023-07-23] MEDS ORDERED: oxyCODONE HCL 5 MG TABLET PO ONE (11:53)
[2023-07-23] MEDS ORDERED: oxyCODONE HCL 5 MG TABLET ONE (12:11)
[2023-07-23] MEDS ORDERED: PATIENT'S OWN MEDICATION (NON-FORMULARY) (Hydrocodone/Acetaminophen 1 TAB Tablet) PO PRN (15:25)
[2023-07-23 16:08] LABS: BASO % 1.4 % (0-2.0); EOS % 4.5 % (0-4.5); HEMATOCRIT 38.5 % (35.4-49); HEMOGLOBIN 12.2 GM/dL (11.7-16.9); LYMPH % 14.2 % (8-40); MCH 28.9 pg (25.7-33.7); MCHC 31.7 g/dl (32.0-35.9); MEAN CELL VOLUME 91.2 fl (80-96); MONO % 7.5 % (3.8-10.2); NEUT % 72.4 % (42.8-82.8); PLATELET COUNT 335 10^3/uL (134-434); RBC 4.23 M/mm3 (4.00-5.60); RDW 15.8 % (11.9-15.9); WHITE BLOOD COUNT 8.5 K/mm3 (4.0-10.0)
[2023-07-23 16:20] LABS: POTASSIUM 4.5 mmol/L (3.5-5.1)
[2023-07-23 16:22] LABS: CALCIUM 9.6 mg/dL (8.5-10.1)
[2023-07-23 16:23] LABS: ALBUMIN 3.5 g/dl (3.4-5.0); BLOOD UREA NITROGEN 10.8 mg/dL (7-18)
[2023-07-23 16:26] LABS: CREATININE 0.8 mg/dL (0.55-1.3)
[2023-07-23 16:27] LABS: BILIRUBIN,TOTAL 0.3 mg/dL (0.2-1)
[2023-07-23] MEDS: GABAPENTIN 300 MG CAPSULE PO SCH (17:38)
[2023-07-23 18:57] VITALS: BMI 34.5
[2023-07-23] MEDS: oxyCODONE HCL 5 MG TABLET PO PRN (21:24)
[2023-07-23] MEDS: ACETAMINOPHEN 325 MG TABLET (FP) PO PRN (21:26)
[2023-07-24] MEDS: diazePAM 5 MG TABLET PO PRN (00:40)
[2023-07-24] MEDS: GABAPENTIN 300 MG CAPSULE PO SCH ×4 (00:43→17:42)
[2023-07-24] MEDS: ACETAMINOPHEN 325 MG TABLET (FP) PO PRN ×2 (05:16→15:22)
[2023-07-24] MEDS: oxyCODONE HCL 5 MG TABLET PO PRN ×2 (05:17→15:23)
[2023-07-24] MEDS: VENLAFAXINE HCL 75 MG E.R. CAPSULES PO SCH (09:11)
[2023-07-24] MEDS: LISINOPRIL 20 MG TABLET PO SCH (09:11)
[2023-07-24 09:22] LABS: BASO % 1.4 % (0-2.0); EOS % 6.6 % (0-4.5); HEMATOCRIT 36.2 % (35.4-49); HEMOGLOBIN 11.7 GM/dL (11.7-16.9); LYMPH % 22.3 % (8-40); MCH 29.1 pg (25.7-33.7); MCHC 32.2 g/dl (32.0-35.9); MEAN CELL VOLUME 90.3 fl (80-96); MEAN PLT VOLUME 6.9 fl (7.5-11.1); MONO % 8.6 % (3.8-10.2); NEUT % 61.1 % (42.8-82.8); PLATELET COUNT 337 10^3/uL (134-434); RBC 4.01 M/mm3 (4.00-5.60); RDW 15.6 % (11.9-15.9); WHITE BLOOD COUNT 6.2 K/mm3 (4.0-10.0)
[2023-07-24 09:48] LABS: BLOOD UREA NITROGEN 9.5 mg/dL (7-18); CALCIUM 9.4 mg/dL (8.5-10.1)
[2023-07-24 09:50] LABS: CREATININE 0.9 mg/dL (0.55-1.3)
[2023-07-25] MEDS: GABAPENTIN 300 MG CAPSULE PO SCH ×4 (00:21→18:13)
[2023-07-25] MEDS: POLYETHYLENE GLYCOL (HEALTHYLAX) 3350 17 GM PACKET PO SCH (09:29)
[2023-07-25] MEDS: LISINOPRIL 20 MG TABLET PO SCH (09:29)
[2023-07-25] MEDS: HEPARIN NA (PORCINE) 5,000 UNITS/ML 1ML VIAL SQ SCH ×2 (09:29→21:39)
[2023-07-25] MEDS: VENLAFAXINE HCL 75 MG E.R. CAPSULES PO SCH (09:30)
[2023-07-25] MEDS: ACETAMINOPHEN 325 MG TABLET (FP) PO PRN (10:31)
[2023-07-26] MEDS: GABAPENTIN 300 MG CAPSULE PO SCH ×4 (00:35→17:22)
[2023-07-26] MEDS: oxyCODONE HCL 5 MG TABLET PO PRN ×3 (01:30→22:44)
[2023-07-26] MEDS: ACETAMINOPHEN 325 MG TABLET (FP) PO PRN (05:35)
[2023-07-26] MEDS: POLYETHYLENE GLYCOL (HEALTHYLAX) 3350 17 GM PACKET PO SCH (09:39)
[2023-07-26] MEDS: HEPARIN NA (PORCINE) 5,000 UNITS/ML 1ML VIAL SQ SCH ×2 (09:45→21:34)
[2023-07-26] MEDS: LISINOPRIL 20 MG TABLET PO SCH (09:46)
[2023-07-26] MEDS: VENLAFAXINE HCL 75 MG E.R. CAPSULES PO SCH (09:46)
[2023-07-26] MEDS: diazePAM 5 MG TABLET PO PRN (21:35)
[2023-07-27] MEDS: GABAPENTIN 300 MG CAPSULE PO SCH ×5 (02:24→23:55)
[2023-07-27] MEDS: VENLAFAXINE HCL 75 MG E.R. CAPSULES PO SCH (09:57)
[2023-07-27] MEDS: HEPARIN NA (PORCINE) 5,000 UNITS/ML 1ML VIAL SQ SCH ×2 (09:57→21:25)
[2023-07-27] MEDS: LISINOPRIL 20 MG TABLET PO SCH (09:57)
[2023-07-27] MEDS: POLYETHYLENE GLYCOL (HEALTHYLAX) 3350 17 GM PACKET PO SCH (09:58)
[2023-07-27] MEDS: oxyCODONE HCL 5 MG TABLET PO PRN (20:20)
[2023-07-27] MEDS: ACETAMINOPHEN 325 MG TABLET (FP) PO PRN (22:59)
[2023-07-28] MEDS: GABAPENTIN 300 MG CAPSULE PO SCH ×4 (05:24→22:51)
[2023-07-28] MEDS: HEPARIN NA (PORCINE) 5,000 UNITS/ML 1ML VIAL SQ SCH ×2 (09:39→22:51)
[2023-07-28] MEDS: POLYETHYLENE GLYCOL (HEALTHYLAX) 3350 17 GM PACKET PO SCH (09:39)
[2023-07-28] MEDS: VENLAFAXINE HCL 75 MG E.R. CAPSULES PO SCH (09:39)
[2023-07-28] MEDS: LISINOPRIL 20 MG TABLET PO SCH (09:39)
[2023-07-28 09:41] LABS: EOS % 8.5 % (0-4.5); HEMOGLOBIN 12.6 GM/dL (11.7-16.9); LYMPH % 20.1 % (8-40); MCH 28.6 pg (25.7-33.7); MCHC 32.2 g/dl (32.0-35.9); MEAN PLT VOLUME 7.2 fl (7.5-11.1); MONO % 8.4 % (3.8-10.2); PLATELET COUNT 471 10^3/uL (134-434); RBC 4.38 M/mm3 (4.00-5.60); RDW 15.9 % (11.9-15.9); WHITE BLOOD COUNT 6.2 K/mm3 (4.0-10.0)
[2023-07-28 09:55] LABS: POTASSIUM 4.4 mmol/L (3.5-5.1)
[2023-07-28 09:56] LABS: CALCIUM 9.3 mg/dL (8.5-10.1)
[2023-07-28 09:57] LABS: ALBUMIN 3.1 g/dl (3.4-5.0); MAGNESIUM 2.1 mg/dL (1.8-2.4)
[2023-07-28 10:01] LABS: BILIRUBIN,TOTAL 0.3 mg/dL (0.2-1); CREATININE 0.8 mg/dL (0.55-1.3)
[2023-07-28 10:03] LABS: TOT PROT 6.8 g/dl (6.4-8.2)
[2023-07-29] MEDS: ACETAMINOPHEN 325 MG TABLET (FP) PO PRN ×2 (01:01→22:39)
[2023-07-29] MEDS: GABAPENTIN 300 MG CAPSULE PO SCH ×3 (06:34→21:49)
[2023-07-29] MEDS: POLYETHYLENE GLYCOL (HEALTHYLAX) 3350 17 GM PACKET PO SCH (09:20)
[2023-07-29] MEDS: LISINOPRIL 20 MG TABLET PO SCH (09:32)
[2023-07-29] MEDS: oxyCODONE HCL 5 MG TABLET PO PRN ×2 (09:32→20:35)
[2023-07-29] MEDS: VENLAFAXINE HCL 75 MG E.R. CAPSULES PO SCH (09:32)
[2023-07-29] MEDS: HEPARIN NA (PORCINE) 5,000 UNITS/ML 1ML VIAL SQ SCH ×2 (09:37→21:49)
[2023-07-30] MEDS: diazePAM 5 MG TABLET PO PRN (01:00)
[2023-07-30] MEDS: oxyCODONE HCL 5 MG TABLET PO PRN (04:51)
[2023-07-30] MEDS: GABAPENTIN 300 MG CAPSULE PO SCH ×3 (05:07→23:54)
[2023-07-30] MEDS: LISINOPRIL 20 MG TABLET PO SCH (09:33)
[2023-07-30] MEDS: HEPARIN NA (PORCINE) 5,000 UNITS/ML 1ML VIAL SQ SCH ×2 (09:33→23:54)
[2023-07-30] MEDS: VENLAFAXINE HCL 75 MG E.R. CAPSULES PO SCH (09:33)
[2023-07-30] MEDS: POLYETHYLENE GLYCOL (HEALTHYLAX) 3350 17 GM PACKET PO SCH (09:33)
[2023-07-31] MEDS: GABAPENTIN 300 MG CAPSULE PO SCH ×3 (05:26→22:46)
[2023-07-31] MEDS: HEPARIN NA (PORCINE) 5,000 UNITS/ML 1ML VIAL SQ SCH ×2 (09:55→22:46)
[2023-07-31] MEDS: VENLAFAXINE HCL 75 MG E.R. CAPSULES PO SCH (09:56)
[2023-07-31] MEDS: POLYETHYLENE GLYCOL (HEALTHYLAX) 3350 17 GM PACKET PO SCH ×2 (09:58→10:07)
[2023-07-31] MEDS: LISINOPRIL 20 MG TABLET PO SCH (10:47)
[2023-07-31] MEDS: ACETAMINOPHEN 325 MG TABLET (FP) PO PRN (14:01)
[2023-07-31] MEDS: oxyCODONE HCL 5 MG TABLET PO PRN (23:49)
[2023-07-31 23:56] VITALS: RESP 20
[2023-08-01] MEDS: GABAPENTIN 300 MG CAPSULE PO SCH (05:52)
[2023-08-01 06:51] VITALS: BP 121/62; PULSE 85; TEMP 98.6
[2023-08-01] MEDS: LISINOPRIL 20 MG TABLET PO SCH (09:37)
[2023-08-01] MEDS: VENLAFAXINE HCL 75 MG E.R. CAPSULES PO SCH (09:37)
[2023-08-01] MEDS: POLYETHYLENE GLYCOL (HEALTHYLAX) 3350 17 GM PACKET PO SCH (09:37)
== END 2023-08-01 11:42 | DRG 914 ==
LOC: JER 09:36 → OBSVTOIN 14:28 → JERBED 14:28 → J8W 17:19
PROVIDERS: ADMIT Internal Medicine; ATTEND Nurse Practitioner Family
DX: S99.812A Other specified injuries of left ankle, initial encounter (principal); M48.02 Spinal stenosis, cervical region; M54.12 Radiculopathy, cervical region; I10 Essential (primary) hypertension; R26.2 Difficulty in walking, not elsewhere classified; W18.30XA Fall on same level, unspecified, initial encounter; Y92.098 Other place in other non-institutional residence as the place of occurrence of the external cause; Y99.9 Unspecified external cause status
CPT/HCPCS: 36415; 73590-TC-LT-FY; 73610-TC-LT-FY; 73630-TC-LT; 80048; 80053; 83735; 84153; 85025; 87635; 93005; 93010; 97116-GP; 99285-25; J1644